=== PATIENT | female | born 1985 | race Caucasian/White ===

== ENCOUNTER 2018-07-12 17:49 | Emergency (ER) | payer MEDICAID ==
[~2018-07-12] VITALS: Ht 152.4 cm; Wt 48.7 kg
[~2018-07-12 17:49] MED LIST: ACET325T33 PO; CEPH500C PO; D-ME118S6 PO; IBUP-1561 PO; MECL12.574 PO; ONDA4TAB14 PO; PREN1TAB17 PO
[2018-07-12 17:58] VITALS: Ht 152.4 cm; Wt 48.7 kg
--- NOTE | 2018-07-12 18:47 | ERD ---
ER Documentation Chief Complaint Chief Complaint LEFT EAR PAIN VERTIGO HPI 33-year-old female with history of positional vertigo, presents to the emergency department, complaining of new onset of and a spinning sensation that is started 3 days ago, associated with left ear fullness but no tinnitus, no otorrhea, no fever, no chills, no headache. The patient denies distal weakness, numbness or tingling. ROS All systems reviewed and are negative except as per history of present illness. Medications Home Meds Active Scripts Meclizine Hcl* (Antivert*) 12.5 Mg Tab, 12.5 MG PO Q6H PRN for DIZZINESS, #20 TAB Prov:JESSICA DELA CRUZ MD 07/12/18 Acetaminophen* (Tylenol*) 325 Mg Tablet, 2 TAB PO Q6 PRN for PAIN AND OR ELEVATED TEMP, #20 TAB Prov:JUSTICE SANTOS PA-C 03/14/17 Ondansetron (Ondansetron Odt) 4 Mg Tab.rapdis, 4 MG PO Q6H PRN for NAUSEA AND/OR VOMITING, #30 TAB Prov:JUSTICE SANTOS PA-C 03/14/17 Meclizine Hcl* (Antivert*) 12.5 Mg Tab, 12.5 MG PO Q6H PRN for DIZZINESS, #30 TAB Prov:JUSTICE SANTOS PA-C 03/14/17 Dextromethorphan Hb-Promethazine Hcl (Promethazine DM Syrup) 180 Ml Syrup, 5 ML PO Q6H PRN for COUGH, #4 OZ Prov:DELIA MOLINA MD 07/09/15 Cephalexin* (Cephalexin*) 500 Mg Capsule, 500 MG PO QID for 5 Days, CAP Prov:DELIA MOLINA MD 07/09/15 Ibuprofen* (Motrin*) 400 Mg Tab, 400 MG PO Q6H PRN for PAIN, #16 TAB Prov:DELIA MOLINA MD 07/09/15 Reported Medications Vit-Iron Fumarate-FA ( Tablet) 1 Each Tablet, 1 EACH PO DAILY 10/06/13 Allergies Allergies: Coded Allergies: No Known Allergy (Unverified , 03/14/17) PMhx/Soc History of Surgery: Yes ( ) Anesthesia Reaction: No Hx Neurological Disorder: No Hx Respiratory Disorders: No Hx Cardiac Disorders: No Hx Psychiatric Problems: No Hx Miscellaneous Medical Probl: No Hx Alcohol Use: No Hx Substance Use: No Hx Tobacco Use: No FmHx Family History: No diabetes, No coronary disease Physical Exam Vitals Vital Signs Date Temp Pulse Resp B/P (MAP) Pulse Ox O2 O2 Flow FiO2 Time Delivery Rate 07/12/18 98.0 86 20 118/72 100 Room Air 20:08 (87) 07/12/18 98.0 67 19 120/73 99 17:58 (89) Physical Exam Patient is in no acute distress, vital signs stable. Alert and fully oriented. HEENT: PERRLA, EOMI, Sclera and conjunctiva appear normal, agenesia of the right canal, left ear normal. THROAT: Normal oropharynx. NECK: Supple, No lymphadenopathy. Full ROM without pain or tenderness. HEART: RRR, no rubs, murmurs, clicks or gallops. LUNGS: Clear to auscultation. ABDOMEN: Soft, non-tender without masses or hepatosplenomegaly. EXTREMITIES: No edema bilaterally. BACK: Full ROM, no deformity, normal back exam NEURO: Cranial nerves grossly intact, no motor or sensory deficit. Mild horizontal nystagmus while the patient was looking straight ahead with mildly abnormal head impulse test. Result Diagram: 07/12/18190907/12/181909 Results 24 hrs Laboratory Tests Test 07/12/18 19:10 07/12/18 19:12 07/12/18 19:15 White Blood Count 7.7 10^3/ul Red Blood Count 4.44 10^6/ul Hemoglobin 13.0 g/dl Hematocrit 39.2 % Mean Corpuscular Volume 88.3 fl Mean Corpuscular Hemoglobin 29.3 pg Mean Corpuscular 33.2 g/dl Hemoglobin Concent Red Cell Distribution Width 12.0 % Platelet Count 206 10^3/UL Mean Platelet Volume 10.7 fl Immature Granulocytes % 0.100 % Neutrophils % 52.9 % Lymphocytes % 36.7 % Monocytes % 5.4 % Eosinophils % 4.1 % Basophils % 0.8 % Nucleated Red Blood Cells % 0.0 /100WBC Immature Granulocytes # 0.010 10^3/ul Neutrophils # 4.1 10^3/ul Lymphocytes # 2.8 10^3/ul Monocytes # 0.4 10^3/ul Eosinophils # 0.3 10^3/ul Basophils # 0.1 10^3/ul Nucleated Red Blood Cells # 0.0 10^3/ul Sodium Level 139 mmol/L Potassium Level 3.8 mmol/L Chloride Level 106 mmol/L Carbon Dioxide Level 24 mmol/L Anion Gap 9 Blood Urea Nitrogen 14 mg/dl Creatinine 0.73 mg/dl Est Glomerular Filtrat Rate mL/min > 60 mL/min Glucose Level 95 mg/dl Calcium Level 9.3 mg/dl Bedside Urine pH (LAB) 6.0 Bedside Urine Protein (LAB) Negative Bedside Urine Glucose (UA) Negative Bedside Urine Ketones (LAB) Negative Bedside Urine Blood Trace-lysed Bedside Urine Nitrite (LAB) Negative Bedside Urine Leukocyte Esterase Negative (L POC Beta HCG, Qualitative NEGATIVE Current Medications Medications Dose Sig/Juan Pablo Start Time Status Last (Trade) Ordered Route PRN Stop Time Admin Dose Reason Admin Meclizine 12.5 mg ONCE ONCE 07/12/18 DC 07/12/18 HCl PO 19:00 19:03 (Antivert) 07/12/18 19:01 Procedures/MDM Vital signs stable, neurovascular exam revealed horizontal nystagmus while the patient was looking straight ahead with mildly abnormal head impulse test. Differential diagnosis include but not limited to dehydration, cardiac arrhythmia, , Mnire's disease, vestibular neuronitis, migraine, jenfier tigo, side effects of the medications, hypoglycemia. Less likely but is still a possibility, intracranial hemorrhage, ischemic stroke, REPOSSESSION AGENT neoplasm. Physical examination and clinical presentation consistent most likely with positional vertigo During the ED course the patient remained stable, no new complaints. Results and clinical impression discussed with patient who agrees with management. The patient is stable to be treated outpatient and will be discharged home with instructions to follow up with the primary care provider in the next 48h. If symptoms persist, worsen or new symptoms develop, then patient should return to the ED immediately. Instructions explained and given directly by me to the patient with acknowledgment and demonstrated understanding. Disclaimer: Inadvertent spelling and grammatical errors are likely due to EHR/dictation software use and do not reflect on the overall quality of patient care. Also, please note that the electronic time recorded on this note does not necessarily reflect the actual time of the patient encounter. 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 Esperamos que en cohn visita a la len de emergencia cohn problema medico haya sido solucionado y que se sienta mucho mejor. Para estar seguros que cohn mejoria sigue en proceso, le pedimos el favor de hacer macarena maggie de seguimiento medico con cohn doctor primario en los proximos 2-4 jenkins. Lleve con usted estos documentos y las medicinas recetadas. Si mj sintomas empeoran, NO SE ESPERE, por favor regrese a len de emergencia INMEDIATAMENTE. En mckayla que usted no tenga un mdico de atencin primaria: Llame al mdico o clnica comunitaria de referencia que aparece abajo carmita las horas de consultorio para hacer macarena maggie para que le vean. CLINICAS: [facility] [phone] [facility] [facility] [phone] [facility] [address] [facility] [phone] [facility] [facility] [phone] [facility] [place] [phone] [facility] [phone] JESSICA CONNORS MD Jul 12, 2018 18:47
[2018-07-12] MEDS ORDERED: MECLIZINE 12.5 MG TAB PO ONE (19:00)
[2018-07-12] MEDS ORDERED: MECL12.574 PO (19:12)
[2018-07-12 20:08] VITALS: BP 118/72; PULSE 86; RESP 20
== END 2018-07-12 20:09 | disposition home or self-care (01) ==
LOC: FTE 17:49
DX: H81.10 Benign paroxysmal vertigo, unspecified ear (principal); H91.91 Unspecified hearing loss, right ear
CPT/HCPCS: 80048; 81003; 81025; 85025; Z7502; Z7610; 99283